=== PATIENT | male | born 2000 | race Caucasian/White ===

== ENCOUNTER 2023-03-23 10:34 | Emergency (ER) | payer OTHER, SELFPAY ==
[2023-03-23 10:41] VITALS: BP 114/70; PULSE 80; RESP 16; TEMP 37.3; O2SAT 95; BMI 30.4
--- NOTE | 2023-03-23 10:45 | ED_ITS ---
HPI - URI/Sore Throat General Chief Complaint: Upper Respiratory Symptoms Stated Complaint: asthma , body pain, hard to breath Time Seen by Provider: 03/23/23 10:44 Source: patient Mode of arrival: ambulatory Limitations: no limitations History of Present Illness HPI Narrative: 23 year old male with pmhx significant for asthma presenting to the ED today with difficulty breathing x4 days. States that vaping worsens his difficulty breathing. Nothing seems to relieve his symptoms. Reports hx of asthma however does not take anything for this at home and has not had an exacerbation in 4-5 years. States he has an inhaler at home that has since . Denies headache, dizziness, fever, chills, neck pain, sore throat, cough, chest pain, N/V, abdominal pain, LE pain/ swelling. Denies recent travel/ long car rides. No recent surgery/ immobilization. Related Data Previous Rx's Medication Instructions Recorded albuterol sulfate 90 mcg/actuation 2 inh inhalation Q6-8H PRN 03/23/23 aerosol inhaler shortness of breath or wheezing #8.5 grams prednisone 50 mg tablet 50 mg PO DAILY 5 days #5 tabs 03/23/23 Allergies Allergy/AdvReac Type Severity Reaction Status Date / Time No Known Allergies Allergy Verified 03/23/23 10:40 Review of Systems Review of Systems: Constitutional: No fever, chills, fatigue, night sweats, weight changes ENT/Mouth: No ear pain, hearing loss, nasal congestion, sinus pain, rhinorrhea, sore throat Eyes: No eye pain, swelling, redness, vision changes, discharge Cardio: No chest pain, palpitations, MARX, orthopnea, peripheral edema Pulm: + SOB, No cough, sputum, wheezing, dyspnea, hemoptysis GI: No nausea, vomiting, hematemesis, abdominal pain, diarrhea, constipation, hematochezia, melena : No irregular bleeding, dysuria, frequency, urgency, hesitancy, hematuria, flank pain, urinary flow changes, urinary incontinence or retention MSK: No back pain, neck pain, joint pain, myalgias Skin: No lesions, rashes Neuro: No weakness, numbness, paresthesias, LOC, dizziness, headache All other systems reviewed and are negative. FORMERLY [facility], 1928–1983 Past Medical History Attestation statement: The following information was validated with the patient. Source: old records reviewed and nursing notes reviewed Social History Social History Advance Directives: No Advance Directives Information Provided: No Advance Directives on File: No Physical Exam Vital Signs: Vital Signs: Last Vital Signs Temp 99.2 F 03/23/23 10:41 Pulse 69 03/23/23 11:17 Resp 16 03/23/23 11:17 BP 114/70 03/23/23 10:41 Pulse Ox 95 03/23/23 10:41 O2 Del Method Room Air 03/23/23 10:41 BMI result Body Mass Index 30.4 Vital signs stable. Const: General: cooperative, comfortable, no acute distress, alert and awake; No diaphoretic Orientation/consciousness: patient oriented x3 Limitations: no limitations HEENT: Head: Yes normal to inspection Ears: hearing grossly normal bilaterally General nose exam: Normal external nose present, Normal nasal mucous membranes and turbinates present and Normal septum present Face and sinus: Yes normal facial exam and Yes sinuses nontender Mouth: Normal oral and palatal mucosa present and moist mucous membranes Throat: Yes posterior oropharynx normal, Yes tonsils normal and Yes uvula midline Eyes: General: appearance normal, both eyes and all related structures Conjunctivae: conjunctivae normal Sclerae: sclerae normal Pupils: Equal, round and reactive pupils present EOM: EOMs intact bilaterally Neck: Neck: Yes normal visual inspection, Yes no lymphadenopathy and Yes no meningeal signs Chest: Chest palpation & inspection: normal inspection of the chest, normal palpation of entire chest wall, no crepitus and no tenderness Resp: Other: + bilateral wheezes. Effort & Inspection: normal respiratory effort and able to speak in complete sentences Cardio: Rate: regular rate Rhythm: regular rhythm Peripheral pulses: radial pulses present Skin: General skin exam: no rashes or lesions noted Neuro: General: patient oriented x3, gait normal, moves all extremities and no meningeal signs Cranial nerves: Yes CN's II-XII intact bilaterally and Yes Equal, round and reactive pupils present Extrem: General: Yes normal to inspection, Yes capillary refill normal and Yes no clubbing, cyanosis or edema Course Course Course Narrative: 1152-- Serology negative for influenza, RSV, COVID. Patient received albuterol treatment via respiratory team. On re-evaluation of patient, lungs are clear to auscultation bilaterally. No wheezes. Patient states that he is feeling much better after treatment. Patient's symptoms are consistent with acute bronchitis/asthma exacerbation. I will send patient home with albuterol inhaler and 5 day course of prednisone. Additionally advised him to stop vaping as these can worsen his symptoms. Advised patient to follow-up with his primary care physician. Discussed return precautions. All questions answered at this time. Patient is agreeable disposition and stable for discharge. Medications Administered Discontinued Medications Generic Name Dose Route Start Last Admin Trade Name Jenn PRN Reason Stop Dose Admin Albuterol Sulfate 2.5 mg 03/23/23 11:12 03/23/23 11:16 Albuterol Sulfate (0.083%) 2.5 Mg/3 Ml Vial.Neb INHALE 03/23/23 11:13 2.5 mg ONCE ONE Administration Medical Decision Making Medical Decision Making [facility] Narrative: 23 year old male with pmhx significant for asthma presenting to the ED today with difficulty breathing x4 days. Vital signs are stable. Patient is nontoxic appearing and in no acute distress. RRR. Posterior oropharynx without erythema or edema. No tonsillar exudates. Uvula is midline, controlling secretions, speaking complete sentences. Lungs with wheezes bilaterally. Physical exam otherwise normal. Clinical concern for acute bronchitis, viral syndrome, asthma exacerbation. Unlikely pneumonia, PE, ACS, strep throat. Plan at this time is to obtain serology and breathing treatment. Differential Diagnosis Differential Diagnoses: The differential diagnosis associated with the presentation includes As above. Admission/Observation Not indicated. Lab Data [facility] Lab Attestation statement: I reviewed the patient's lab results. As above. Labs: Lab Results 03/23/23 Range/Units 10:57 Influenza Type A (PCR) NEGATIVE (Negative) Influenza Type B (PCR) NEGATIVE (Negative) RSV RNA Qual (PCR) NEGATIVE (Negative) SARS-CoV-2 RNA (RT-PCR) NEGATIVE (Negative) External Record Review External record reviewed: Inpatient record Prescription Management I considered prescription management with: Other (Steroid) Chronic Conditions Patient?s care impacted by: Other (Asthma) Social Determinants Patient?s care significantly limited by Social Determinants of Health including: Other Social Determinant of Health Critical Care Time Critical Care Time Critical Care Time: No Discharge Plan Discharge Clinical Impression: Acute bronchitis Patient Disposition: Home, Self-Care Instructions: How to Use a Metered-Dose Inhaler (ED), Acute Bronchitis (ED) Additional Instructions: You tested negative for covid, flu, and RSV today. You received a breathing treatment of albuterol in ED, which you tolerated well. You likely have acute bronchitis/ asthma exacerbation. Albuterol inhaler will be sent to your pharmacy. Take this as prescribed to help with your breathing. A five day course of steroids have been sent to your pharamcy. Take these as directed and to completion. Do not miss any doses or stop them early. Stop vaping. This can make her symptoms worse. Follow-up with your primary care provider as needed. If her symptoms persist or worsen return to the emergency department. In the case of an emergency call 911. Prescriptions: New prednisone 50 mg tablet 50 mg PO DAILY 5 Days Qty: 5 0RF albuterol sulfate 90 mcg/actuation HFA aerosol inhaler 2 inh inhalation Q6-8H PRN (Reason: shortness of breath or wheezing) Qty: 8.5 0RF Referrals: [facility] [Provider Group] Physician,None [Primary Care Provider] - Stand Alone Forms: Work/School Release Interventions: ED Discharge Assessment Last Done: 03/23/23 12:00 Discharge Date/Time: 03/23/23 12:01
[2023-03-23] MEDS: Albuterol Sulfate (0.083%) 2.5 MG/3 ML VIAL.NEB INHALE (11:16)
[2023-03-23 11:17] VITALS: PULSE 69; RESP 16; O2SAT 98
[2023-03-23 11:41] LABS: Influenza A PCR NEGATIVE (Negative); Influenza B PCR NEGATIVE (Negative); Resp Syncy Virus RNA Qual PCR NEGATIVE (Negative); SARS COV2 PCR INHOUSE NEGATIVE (Negative)
== END 2023-03-23 12:01 | disposition home or self-care (01) ==
PROVIDERS: Physician Assistant Medical; Emergency Provider Emergency Medicine
DX: J20.9 Acute bronchitis, unspecified (principal); J45.909 Unspecified asthma, uncomplicated; M79.10 Myalgia, unspecified site; Z20.822 Contact with and (suspected) exposure to COVID-19; Z20.828 Contact with and (suspected) exposure to other viral communicable diseases
CPT/HCPCS: 0241U; 94640; 99284